=== PATIENT | female | born 1995 | race Caucasian/White ===

== ENCOUNTER 2024-10-02 10:55 | Outpatient (CLI) | payer BC, SELFPAY ==
[2024-10-02] VITALS (18 sets, daily range): BP systolic 112–125; BP diastolic 65–78; PULSE 77–94; O2SAT 96–98
[2024-10-02 12:31] LABS: Hematocrit* 32.0 % (33.0-51.0); Hemoglobin* 10.8 gm/dL (12.0-16.0); Immature Granulocytes Abs Auto 0.01 K/uL (0.00-0.30); Immature Granulocytes Pct Auto 0.1 %; Mean Corpuscular HGB Conc 34 gm/dL (32-36); Mean Corpuscular Hemoglobin 30 pg (26-34); Mean Corpuscular Volume 90 fL (80-100); RDW Coefficient of Variation % 12.6 % (11.5-15.5); Red Blood Count* 3.55 m/uL (4.00-5.20); White Blood Count* 8.64 K/uL (4.50-11.00)
[2024-10-02 12:32] LABS: Lymphocytes Absolute Auto 1.50 K/uL (0.90-2.90); Slide Review Reflex No
[2024-10-02 12:49] LABS: Alanine Aminotransferase* 29 U/L (4-35); Aspartate Amino Transferase* 35 U/L (12-35); Blood Urea Nitrogen* 4 mg/dL (5-24)
[2024-10-02 13:01] LABS: Protein Creatinine Ratio Urine 0.32 (0-0.19)
--- NOTE | 2024-10-02 14:21 | PC.OBNST ---
NST Note NST Note Start: 10/02/24 11:04 Freq: ONCE Status: Active Protocol: Document 10/02/24 14:17 JRS (Rec: 10/02/24 14:21 JRS No Response) NST Note 1 Para (# of births) 0 EDC 01/10/25 Gestational Age In 25 Weeks & 5 Days Weeks & Days Patient Presented Other with Complaint(s) of Other Complaints Here for BP monitoring and labs. Sent home with a 24 hour urine Reactive Yes Appropriate for Yes Gestational Age RONNIE Loredo RN Date 10/02/24 Reactive Yes Appropriate for Yes Gestational Age RONNIE Castillo RN Date 10/02/24 OB NST charge Yes Complete NST Note Yes via Write Note The provider's electronic signature indicates the NST is reactive/appropriate for gestational age. *Note to provider: If an addendum is required, open the patient's chart and click on the note under the Nurse/Allied Health tab.
[2024-10-03 18:36] LABS: Protein Creatinine Ratio Urine 0.25 (0-0.19)
[2024-10-03 18:40] LABS: Total Volume 24 Hour Urine 1700 ml; Urine Creatinine mg/24 Hour 945 mg/Day
== END 2024-10-02 14:10 | disposition home or self-care (01) ==
LOC: OB OUT 10:55 → OB 10:56
PROVIDERS: PCP Student in an Organized Health Care Education/Training Program; Visit Provider Family Medicine
DX: O26.892 Other specified pregnancy related conditions, second trimester (principal); R03.0 Elevated blood-pressure reading, without diagnosis of hypertension; Z3A.25 25 weeks gestation of pregnancy
CPT/HCPCS: 36415; 59025; 82570; 84156; 84450; 84460; 84520; 85025; G0463

== ENCOUNTER 2025-01-10 08:04 | Inpatient (IN) | payer BC, MEDICAID, SELFPAY ==
[2025-01-10] VITALS (87 sets, daily range): BP systolic 112–181; BP diastolic 60–113; PULSE 79–109; RESP 16–22; TEMP 36.6–37; O2SAT 95–100; BMI 37.4
[2025-01-10 07:12] LABS: Amnisure Rom* Negative
[2025-01-10 07:22] LABS: Hematocrit* 40.3 % (33.0-51.0); Hemoglobin* 13.3 gm/dL (12.0-16.0); Mean Corpuscular HGB Conc 33 gm/dL (32-36); Mean Corpuscular Hemoglobin 30 pg (26-34); Mean Corpuscular Volume 90 fL (80-100); Red Blood Count* 4.47 m/uL (4.00-5.20); White Blood Count* 5.81 K/uL (4.50-11.00)
[2025-01-10 07:38] LABS: Slide Review Reflex No
[2025-01-10 07:41] LABS: Blood Urea Nitrogen* 7 mg/dL (5-24); Creatinine* 0.5 mg/dL (0.5-1.5); Estimated Glomerular Filt Rate 130 ml/min
[2025-01-10 07:41] LABS: Protein Creatinine Ratio Urine 0.54 (0-0.19)
[2025-01-10 07:42] LABS: Alanine Aminotransferase* 32 U/L (4-35); Aspartate Amino Transferase* 58 U/L (12-35)
--- NOTE | 2025-01-10 08:38 | PM.OBHPLI ---
OB - H&P: HPI Labor/Induction History of Present Illness Time Seen by Provider: 08:38 Date Seen: 01/10/25 Chief Complaint: The patient is a 29 year old 1 para 0 at 40+0 weeks gestation by LMP, who presents with elevated blood pressures at home. Chief complaint: Maternity : 1 Para: 0 Indications for induction: pre-eclampsia Narrative: Amberly Heller is a 29 year old female at 40 +0 weeks by LMP consistent with 8 week ultrasound who presents with elevated blood pressures at home. Reports that yesterday she was not feeling well. Checked her blood pressures in the evening was elevated greater than 140/90. She rechecked and came down to 130/90. Woke up with a headache this morning and checked her blood pressure again, again elevated greater than 140/90. Upon arrival at the Center, her headache had resolved. initial BP 143/68. Some contractions on the monitor, but she is not feeling them. does report that she had some scant vaginal bleeding yesterday and possibly loss of her mucus plug. Again this a.m., scant bleeding. AmniSure was negative on admission. Preeclampsia labs show protein creatinine ratio of 0.54, AST 58, otherwise within normal limits. Normal movement. Her has been complicated by GDM A1. Very well controlled. She uses a [employer] CGM. EFW 29th percentile at 36 weeks. Maternal obesity with pregabalin BMI of 32. She has been on a daily baby aspirin. Low risk NIPT and normal level 2 ultrasound. History of Present Dating criteria: based on LMP care: good care Ultrasounds: normal 1st trimester US and normal mid trimester US complications: preeclampsia and gestational diabetes (diet controlled) Labs Blood type: A (+) positive Rubella: immune RPR/VDLR: nonreactive GBS status: negative HBsAG: negative Narrative: 3 hour GTT: 76, 218, 202, 151 Hep C neg GC/clam neg HIV neg Review of Systems Status of ROS: Reports: 10 or more systems reviewed and unremarkable except as noted in History and below Meds Home Medications and Allergies Home Medications ?Medication ?Instructions ?Recorded ?Confirmed ?Type aspirin 81 mg tablet,delayed 81 mg PO DAILY 10/02/24 01/10/25 History release mv-mn 115-folic 180 mcg-om3 35 1 tab PO DAILY 10/02/24 01/10/25 History mg-dha 25 mg-epa 5 mg-fish chew tablet (Centrum ) Allergies Allergy/AdvReac Type Severity Reaction Status Date / Time amoxicillin (From Augmentin) Allergy Intermediate Verified 01/10/25 06:42 clavulanic acid (From Allergy Intermediate Verified 01/10/25 06:42 Augmentin) strawberry Allergy Rash Verified 01/10/25 06:42 OB - H&P: Exam Physical Exam: Vital signs: Temp Pulse Resp BP Pulse Ox 98.2 F 94 16 138/87 96 01/10/25 08:26 01/10/25 08:34 01/10/25 08:26 01/10/25 08:34 01/10/25 08:34 Narrative: General appearance: Well-appearing adult female. Alert, oriented and appropriate. Sitting up in hospital bed. HEENT: EOMI, no conjunctival injection or discharge. MMM. Neck: Supple. CV: RRR, no rubs, murmurs or extra heart sounds. Pulm: CTAB, no wheezes, rales or rhonchi. Abdomen: Gravid. No RUQ tenderness MSK: Moving all extremities. Ext: Warm and well-perfused. Trace edema. Skin: No rashes appreciated over exposed skin. Neuro: Patellar reflexes could not be elicited bilaterally. No ankle clonus. Otherwise grossly normal strength and sensation. No focal deficits. Psych: Normal affect. Detailed Labor and Delivery Exam: Patient Gravid: yes Dilation (cm): 1 Contraction frequency (min): 4 Tachysystole: No Fetus (Single): Amniotic Membrane Status: intact Heart Rate Baseline: 135 Monitor Accelerations: Present Monitor Decelerations: None Retirement Variability: Moderate (6-25) OB - Results Labs Labs: Short CBC 01/10/25 Range/Units 07:06 WBC 5.81 (4.50-11.00) K/uL Hgb 13.3 (12.0-16.0) gm/dL Hct 40.3 (33.0-51.0) % Plt Count 210 (140-440) K/uL BMP 01/10/25 07:06 BUN 7 Creatinine 0.5 Liver Function 01/10/25 Range/Units 07:06 AST 58 H (12-35) U/L ALT 32 (4-35) U/L OB - Problem Based A/P Additional Plan (1) 40 weeks gestation of : Status: Acute (2) Preeclampsia: Problem details: Multiple BPs >140/90 4 hours apart (home BPs on evening [employer]), Pr/Cr 0.54, AST 56. No severe features. Status: Acute (3) Gestational diabetes mellitus: Problem details: GDM A1, well-controlled with diet alone Status: Acute Plan - IOL for pre-eclampsia at term. Plan vaginal cytotec for cervical ripening per protocol - Monitor blood pressures and treat severe range pressures as indicated - Plan repeat pre-eclampsia labs in 12 hours or sooner if severe range pressures or new symptoms - GBS negative - FHT category I - Diabetic diet. Blood sugar monitoring per protocol. Plan post- GTT - Epidural upon request
--- NOTE | 2025-01-10 17:52 | P.OBPN_ITS ---
Subjective Time Seen by Provider: 17:52 Date Seen: 01/10/25 Narrative: Patient is now s/p vaginal cytotec x 3 doses. Contractions have become more regular. Currently feeling like strong menstrual cramps, but more intense over the past hour. Denies VELA or visual changes. Blood pressures have 130-140s/80s. None severe range. Objective Vital Signs: Last Vital Signs Temp 98.1 F 01/10/25 17:33 Pulse 86 01/10/25 17:48 Resp 16 01/10/25 17:33 BP 142/90 H 01/10/25 17:48 Pulse Ox 97 01/10/25 17:33 Pelvic Exam Dilation (cm): 3 Effacement (%): 60 Station: -1 Comments: Bulging bag with contractions. Head well-applied. Contractions Contraction Frequency: 1-3 Assessment Assessment: induction ongoing Station: -1 Status: Category l Heart Rate Baseline: 130 Long-Term Variability: Moderate (6-25) Monitor Accelerations: Present Monitor Decelerations: None Plan Plan: - AROM for clear fluid - Monitor for 1 hour following AROM. Pending intensity and frequency of contractions, consider IV pitocin for ongoing induction - Epidural upon request - GBS negative - FHT category I - Anticipate vaginal delivery
[2025-01-10] MEDS: LACTATED RINGERS 1000 ML 1,000 ML 1500 ML IV (18:04)
[2025-01-10] MEDS: LIDOCAINE 2% (PF) 5 ML VIAL EPIDURAL (18:36)
[2025-01-10] MEDS: ROPIVACAINE 0.2% 100 ml 100 ML 10 MG EPIDURAL (19:03)
--- NOTE | 2025-01-10 19:11 | P.ANBPRC_ITS ---
PFSH PFSH Social History What is your current living situation?: I presently have a place to live Problems where you live: no known problems In the past 12 months, utilities in danger of being shut off: no In past 12 months, lack of transportation kept you from medical appts, meetings, work, or getting things needed for daily living: no In the past 12 mos, have been you worried that your food would run out before you had money to buy more?: never true In the past 12 mos, the food you bought just didn't last and you didn't have money to buy more?: never true Smoking Status: Never smoker How often does anyone, including family, friends and others, physically hurt you : never How often does anyone, including family, friends and others, insult or talk down to you: never How often does anyone, including family, friends and others, threaten you with harm: never How often does anyone, including family, friends and others, scream or curse at you: never Meds Home Medications and Allergies Home Medications ?Medication ?Instructions ?Recorded ?Confirmed ?Type aspirin 81 mg tablet,delayed 81 mg PO DAILY 10/02/24 1 03/12/24 History release mv-mn 115-folic 180 mcg-om3 35 1 tab PO DAILY 10/02/24 01/10/25 History mg-dha 25 mg-epa 5 mg-fish chew tablet (Centrum ) Allergies Allergy/AdvReac Type Severity Reaction Status Date / Time amoxicillin (From Augmentin) Allergy Intermediate Verified 01/10/25 06:42 clavulanic acid (From Allergy Intermediate Verified 01/10/25 06:42 Augmentin) strawberry Allergy Rash Verified 01/10/25 06:42 Results Labs Labs: Laboratory Results - last 24 hr 01/10/25 01/10/25 01/10/25 06:42 07:01 07:06 WBC 5.81 RBC 4.47 Hgb 13.3 Hct 40.3 MCV 90 MCH 30 MCHC 33 Plt Count 210 BUN 7 Creatinine 0.5 Estimated GFR 130 AST 58 H ALT 32 Urine Creatinine 54.2 Protein/Creatinin Ratio 0.54 H Urine Total Protein 29 Membrane Rupture Negative Blood Type Antibody Screen 01/10/25 10:03 WBC RBC Hgb Hct MCV MCH MCHC Plt Count BUN Creatinine Estimated GFR AST ALT Urine Creatinine Protein/Creatinin Ratio Urine Total Protein Membrane Rupture Blood Type A Positive Antibody Screen NEGATIVE Vital Signs Vital Signs: Last Vital Signs Temp 98.6 F 01/10/25 18:22 Pulse 107 H 01/10/25 19:05 Resp 16 01/10/25 17:33 BP 149/91 H 01/10/25 19:05 Pulse Ox 97 01/10/25 18:50 Weight: 89.811 kg Height: 154.94 cm Anesthesia Procedures Epidural Insertion Patient Location: OB Start Time: 18:30 Stop Time: 19:12 Start Date: 01/10/25 Stop Date: 01/10/25 Reason for Block: procedure for pain Patient Position: sitting Performed By: Renée Obrien Preanesthetic Checklist: IV checked, risks and benefits discussed, monitors and equipment checked, pre-op evaluation, timeout performed and anesthesia consent Prep: chlorhexidine gluconate Monitoring: blood pressure monitoring, continuous pulse oximetry and heart rate Approach: midline Vertebral Space: lumbar (1-5) Epidural Technique: DAHIANA saline Needle Type: Tuohy needle Injection Technique: continuous catheter Needle gauge: 17 Needle Length (cm): 10 cm Needle Insertion Depth (cm): 6 Catheter Gauge: 19 Catheter Type: multi-orifice Catheter at skin depth (cm): 12 Test Dose Result: negative and lidocaine 1.5% with epinephrine 1 to 200,000
[2025-01-10] MEDS: LACTATED RINGERS 1000 ML 1,000 ML 75 ML IV (19:37)
[2025-01-10 19:45] LABS: Hematocrit* 39.4 % (33.0-51.0); Hemoglobin* 12.9 gm/dL (12.0-16.0); Immature Granulocytes Abs Auto 0.06 K/uL (0.00-0.30); Immature Granulocytes Pct Auto 0.8 %; Mean Corpuscular HGB Conc 33 gm/dL (32-36); Mean Corpuscular Hemoglobin 30 pg (26-34); Mean Corpuscular Volume 90 fL (80-100); RDW Coefficient of Variation % 13.5 % (11.5-15.5); Red Blood Count* 4.38 m/uL (4.00-5.20); White Blood Count* 7.34 K/uL (4.50-11.00)
[2025-01-10 19:48] LABS: Lymphocytes Absolute Auto 0.80 K/uL (0.90-2.90); Slide Review Reflex No
[2025-01-10 20:02] LABS: Alanine Aminotransferase* 33 U/L (4-35); Aspartate Amino Transferase* 33 U/L (12-35); Blood Urea Nitrogen* 8 mg/dL (5-24); Creatinine* 0.5 mg/dL (0.5-1.5); Est. Creatinine Clearance* 125.28; Estimated Glomerular Filt Rate 130 ml/min
--- NOTE | 2025-01-10 22:41 | P.OBPN_ITS ---
Subjective Time Seen by Provider: 22:41 Date Seen: 01/10/25 Narrative: I was asked to evaluate the patient for vaginal bleeding. Currently 9/thin/0 by RN check. She has epidural and is comfortable. Feeling some pressure. Objective Vital Signs: Last Vital Signs Temp 98.1 F 01/10/25 21:25 Pulse 96 01/10/25 22:34 Resp 16 01/10/25 21:25 BP 151/86 H 01/10/25 22:34 Pulse Ox 97 01/10/25 21:55 Pelvic Exam Dilation (cm): 9 Effacement (%): 80 Station: 0 Comments: Heavy bloody show, no source of active bleeding visualized. Contractions Contraction Frequency: 1-3 Assessment Assessment: active labor Station: 0 Amniotic Membrane Status: AROM Status: Category ll Heart Rate Baseline: 130 Residential Variability: Moderate (6-25) Monitor Accelerations: Present Monitor Decelerations: Variable Tracing Comments: A few early, variable, and late decelerations. Plan Plan: - Heavy bloody show, but no oozing or trickling. Continue to monitor. Do not suspect abruption. - FHT category II, but good variability, and good progress toward delivery - Coping well with epidural - Recheck in 1 hour or sooner pending strip and symptoms - Anticipate vaginal delivery
[2025-01-11] VITALS (32 sets, daily range): BP systolic 107–178; BP diastolic 57–97; PULSE 72–112; RESP 16–20; TEMP 36.5–37.4; O2SAT 95–100
--- NOTE | 2025-01-11 01:07 | PM.OBPNL ---
Subjective Time Seen by Provider: 01:07 Date Seen: 01/11/25 Narrative: Change in baseline increased rapidly from 140 to 180 between 23:35 and 23:40. Variability remained moderate with accelerations present. IVF rate was increased and maternal temp found to be normal. Remained tachycardic with baseline 180. Noted to have minimal variability 00:32. Bolus started and patient repositioned. Onset of recurrent late decelerations 00:41. Maternal tachycardia in the low 100s to 1teens. Temps have been normal, but subjectively warm on cervical exams. BPs are normal. She had repeat pre-eclampsia labs 1929 that were all WNL. Cervix has remined 9 cm since 22:30. Objective Vital Signs: Last Vital Signs Temp 98.2 F 01/10/25 23:55 Pulse 112 H 01/11/25 00:57 Resp 20 01/10/25 23:55 BP 131/73 01/11/25 00:57 Pulse Ox 97 01/10/25 21:55 Pelvic Exam Dilation (cm): 9 Effacement (%): 80 Station: +1 Assessment Station: +1 Amniotic Membrane Status: AROM Status: Category ll Heart Rate Baseline: 175 [facility] Variability: Minimal (3-5) Monitor Accelerations: Absent Monitor Decelerations: Late Plan Plan: - Tracing discussed with MICROBIOLOGY LAB ANALYST salon receptionist, Dr. Hilario. Feel the patient is meeting criteria for urgent section. Dr. Hilario is in agreement, will come in to evaluate. Team will be called and OR prepared.
[2025-01-11] MEDS: AZITHROMYCIN 500 MG in 0.9 % SODIUM CHLORIDE 250 ml 250 ML 255 MG IVPB (01:11)
[2025-01-11] MEDS: LACTATED RINGERS 1000 ML 1,000 ML 500 ML IV (01:17)
--- NOTE | 2025-01-11 01:21 | P.OBCN_ITS ---
OB - CN: HPI Date of Consult Date Seen: 01/11/25 Patient: Mayda Patient Consult date: 01/11/25 Requesting Physician: Kathi Moreno MD Primary Care Provider: MARY KAY SCHMIDT DO Consult Narrative Narrative: The patient is a 29 year old G 1 P 0 at 40 weeks gestation that was admitted to the Center on 01/10/25 for induction of labor in the setting of preeclampsia without severe features. is otherwise complicated by gestational diabetes. She is an established patient of [facility]. I was contacted by the unit at [phone] with request to review patient's tracing. I called the unit where they report patient is 9cm dilated, with periods of early and intermittent late decelerations for the last few hours. More recently, baby has demonstrated minimal variability with a rise in the baseline to 17 to 180 beats per minute. My remote access dysfunctional, but regardless given this description I recommend proceeding to in notify of the OR team. I presented to the bedside. Patient is resting comfortable with epidural in place. We discussed concern with heart rate changes, and recommendation to proceed with primary . She expressed understanding and is agreeable. We discussed the risks/benefits and alternatives to in detail. Risks including bleeding, infection, damage to surrounding structures reviewed. With regard to bleeding, I counseled her that she is at increased risk of PPH in the setting of an intrapartum . Patient is a candidate for uterotonics but I will aim to avoid Methergine in the setting of her preeclampsia. She would be agreeable to blood transfusion if necessary. Discussed potential surgical interventions that could be required for severe bleeding. Discussed risk of infection, where would recommend Ancef and azithromycin as her surgical prophylaxis. Patient does note an allergy to Augmentin described as hives as a child. Explained Ancef is still the preferred antibiotic in the setting, where we will proceed with a test dose in OR. Reviewed risk of damage to surrounding structures including uterus, tubes, ovaries, bowel, bladder, blood vessels, baby. Patient has no history of other abdominal/pelvic surgeries. Finally, discussed medical risks of surgery/anesthesia such as VTE, heart attack and stroke. After comprehensive discussion, written consent was obtained. Plan to proceed with primary . Ancef and azithromycin as antibiotics, test dose as described above. Blood type A positive, active type and screen on file. Of note, shortly after our discussion patient had a non sustained severe range blood pressure. Dr. Moreno notes she has had several other severe range blood pressures, by greater than 4 hours. As such, she meets criteria for preeclampsia with severe features. Recommend we initiate magnesium sulfate 4g loading dose followed by 2g/hr infusion. Repeat preE labs pending. No headache, vision changes or RUQ pain. Patient was updated on plan and is in agreement. History of Present complications: preeclampsia and gestational diabetes (diet controlled) History History 1 Elective abortions Para 0 Spontaneous abortions Hx # Term Pregnancies Ectopic pregnancies Hx # Pregnancies Multiple births Number of Living Children 0 Labs Blood type: A (+) positive Rubella: immune RPR/VDLR: nonreactive GBS status: negative HBsAG: negative OB Labs: Lab Assessment Start: 01/10/25 07:56 Freq: ONCE Status: Complete Protocol: PC.OBGBS Activity Type Activity Date Activity User E-sign Co-sign Detail Recorded Client Recorded Date Recorded By Document 01/10/25 09:16 WMK No Response 01/10/25 09:17 WMK 01/10/25 09:16 Lab Assessment GBS Status negative GBS Additional Criteria None No Treatment Needed OK Are Labs Available Yes Maternal Blood Type A Maternal RH Factor Positive Evaluate Maternal Rubella Immune Status Immune Hepatitis B Surface Antigen Negative Maternal HIV Status Negative Maternal Syphillis (RPR) Status Negative PFSH PFSH Social History What is your current living situation?: I presently have a place to live Problems where you live: no known problems In the past 12 months, utilities in danger of being shut off: no In past 12 months, lack of transportation kept you from medical appts, meetings, work, or getting things needed for daily living: no In the past 12 mos, have been you worried that your food would run out before you had money to buy more?: never true In the past 12 mos, the food you bought just didn't last and you didn't have money to buy more?: never true Smoking Status: Never smoker How often does anyone, including family, friends and others, physically hurt you : never How often does anyone, including family, friends and others, insult or talk down to you: never How often does anyone, including family, friends and others, threaten you with harm: never How often does anyone, including family, friends and others, scream or curse at you: never Meds Home Medications and Allergies Home Medications ?Medication ?Instructions ?Recorded ?Confirmed ?Type aspirin 81 mg tablet,delayed 81 mg PO DAILY 10/02/24 1 03/12/24 History release mv-mn 115-folic 180 mcg-om3 35 1 tab PO DAILY 10/02/24 01/10/25 History mg-dha 25 mg-epa 5 mg-fish chew tablet (Centrum ) Allergies Allergy/AdvReac Type Severity Reaction Status Date / Time amoxicillin (From Augmentin) Allergy Intermediate Verified 01/10/25 06:42 clavulanic acid (From Allergy Intermediate Verified 01/10/25 06:42 Augmentin) strawberry Allergy Rash Verified 01/10/25 06:42 OB - H&P: Exam Physical Exam: Vital signs: Temp Pulse Resp BP Pulse Ox 98.2 F 105 H 20 144/95 H 97 01/10/25 23:55 01/11/25 01:12 01/10/25 23:55 01/11/25 01:12 01/10/25 21:55 OB - Results Labs Labs: Short CBC 01/10/25 01/10/25 Range/Units 07:06 19:36 WBC 5.81 7.34 (4.50-11.00) K/uL Hgb 13.3 12.9 (12.0-16.0) gm/dL Hct 40.3 39.4 (33.0-51.0) % Plt Count 210 199 (140-440) K/uL BMP 01/10/25 01/10/25 07:06 19:36 BUN 7 8 Creatinine 0.5 0.5 Liver Function 01/10/25 01/10/25 Range/Units 07:06 19:36 AST 58 H 33 (12-35) U/L ALT 32 33 (4-35) U/L OB - CN: A/P Assessment and Plan (1) 40 weeks gestation of : Status: Acute (2) Preeclampsia: Problem details: Multiple BPs >140/90 4 hours apart (home BPs on evening [employer]), Pr/Cr 0.54, AST 56. No severe features. Status: Acute (3) Gestational diabetes mellitus: Problem details: GDM A1, well-controlled with diet alone Status: Acute
[2025-01-11 01:55] LABS: Hematocrit* 39.3 % (33.0-51.0); Hemoglobin* 12.9 gm/dL (12.0-16.0); Mean Corpuscular HGB Conc 33 gm/dL (32-36); Mean Corpuscular Hemoglobin 30 pg (26-34); Mean Corpuscular Volume 90 fL (80-100); Red Blood Count* 4.37 m/uL (4.00-5.20); White Blood Count* 9.54 K/uL (4.50-11.00)
[2025-01-11 01:56] LABS: Slide Review Reflex No
--- NOTE | 2025-01-11 02:01 | PM.OBPRCCS ---
Procedure Post-op diagnosis: same Procedure Done: Global Will [facility] bill your pro fee for this procedure?: Yes Blood Loss Measurement Type: QBL (706) IV fluids (mL): 900 Urine Output (mL): 600 Urine Output Comment: strawberry colored both pre and post procedure Surgeon: Kulwinder Hilario MD Anesthesia Type: Epidural Findings: Liveborn female Meconium stained fluid Posterior uterine surface had diffuse erythematous tissue, very friable with small bleeding - suspect endometriosis Otherwise unremarkable uterus, bilateral fallopian tubes and ovaries Procedure Name: Primary delivery Procedure Description: Patient was taken to the operating room with IV running. She received ancef and azithromcyin in preoperative prophylaxis. Epidural anesthesia was previously administered. Fowler catheter was previously inserted. She was prepped and draped in the usual sterile fashion. Anesthesia was tested and found to be adequate. A low-transverse skin incision was made with a scalpel and carried through to the underlying layer of fascia with the scalpel. The subcutaneous fat was dissected off the underlying fascia with Bovie. The fascia was nicked in the midline with a scalpel, and this incision was extended laterally with scissors. The rectus muscles were in the midline. Peritoneum was identified and entered bluntly. Bovie was used to widen this opening laterally. Julio O retractor was inserted and tightened down, providing excellent visualization of the lower uterine segment. The bladder reflection was advanced along the lower uterine segment, where a bladder flap was developed with sharp and blunt dissection to well below planned site of hysterotomy. Low-transverse uterine incision was made with a scalpel. Incision was widened bluntly. Thick meconium noted. The infant's head was grasped through the hysterotomy and delivered with the help of fundal pressure. The remainder of the body delivered without incident. Cord was clamped and cut after 30 seconds. Infant was handed off to attending nurses and Pediatrics provider. details: - Liveborn female fetus at 0223 - weight 3088g - APGARs were 8 and 9 at 1 and 5 minutes respectively - Cord gas: Arterial pH 7.29, pCO2 54, HC03 26, base excess -2.5 The placenta was delivered with gentle traction on the cord. The uterus was cleaned of all clots and debris with the dry lap pad. No extension of hysterotomy was noted. Atony was noted, IV Pitocin was started. IV TXA and IM Hemabate were requested and administered. The hysterotomy was reapproximated with 0 Vicryl in a running, locked fashion. Uterine tone was noted to improve significantly with medications and 1st layer of closure. Second layer of the same suture was used in imbricating fashion to obtain hemostasis. Additional figure of eight sutures were applied at the right hysterotomy corner and mid region to reinforce hemostasis. Excellent hemostasis was noted. The adnexa were examined and noted to be normal in appearance. The posterior uterus though was notable for friable erythematous tissue that coated half of the posterior uterine surface. Biopsy was performed and sent. This tissue was bleeding spontaneously in several areas, addressed with electrocautery. A running/locking 2-0 vicryl was applied to a bleeding region at the left and right posterior uterus just medial to uteroovarian ligament. Excellent hemostasis was noted. Hysterotomy was reinspected and noted to be hemostatic. Uterus was reintroduced to peritoneal cavity. The cul-de-sac and gutters were cleansed with dampened laparotomy sponge, removing any further clots and debris. The Julio O retractor was removed. The hysterotomy was reexamined and found to be hemostatic. George was applied across hysterotomy. The rectus muscles were elevated, examined and made hemostatic with electrocautery as needed. The fascia was reapproximated with 0 Vicryl in a running fashion. A knot was noted shortly after starting fascial repair, where the first suture was secured toward the right and a second 0 Vicryl stitch was started and continued closure. Subcutaneous fat was irrigated and Bovie used on oozing vessels. The subcutaneous fat was reapproximated with 2 0 Vicryl suture. The skin was closed with a subcuticular stitch of 3-0 Monocryl. Surgical glue was applied above this. Patient tolerated procedure well was taken to recovery area in stable condition. Complications: None Pathology: specimen obtained, sent to pathology Surgery Debrief Performed: Yes Condition: stable Disposition: floor
[2025-01-11] MEDS: MAGNESIUM IV 4 GM/100 ML PIGGYBACK IVPB (02:02)
[2025-01-11 02:10] LABS: Alanine Aminotransferase* 35 U/L (4-35); Aspartate Amino Transferase* 35 U/L (12-35); Blood Urea Nitrogen* 8 mg/dL (5-24); Creatinine* 0.4 mg/dL (0.5-1.5); Est. Creatinine Clearance* 156.59; Estimated Glomerular Filt Rate 137 ml/min
[2025-01-11] MEDS: CEFAZOLIN 2 GM INJ IVP (02:10)
[2025-01-11] MEDS: MAGNESIUM Infusion 40 GM/1,000 ML IV.SOLN IVPB ×2 (02:32→22:31)
--- NOTE | 2025-01-11 04:04 | P.ANES_ITS ---
Anesthesia Charges Start Date/Time Anesthesia Start Date: 01/11/25 Anesthesia Start Time: 01:56 Stop Date/Time Anesthesia Stop Date: 01/11/25 Anesthesia Stop Time: 04:00 Summary Emergency: LEARNING SUPPORT SPECIALIST Coding CPT Codes CPT Codes: ANES/ANALG CS DELIVER ADD-ON - 40633 ([id number]) P2 - PATIENT W/MILD SYST DISEASE, QZ - LEARNING SUPPORT SPECIALIST SVC W/O MANAGER STORAGE BY Additional Codes: Summary - Emergency: LEARNING SUPPORT SPECIALIST ([id number])
--- NOTE | 2025-01-11 04:04 | W.ANESCHARGE ---
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
[2025-01-11] MEDS: LOPERAMIDE HCL 2 MG CAPSULE 4 MG PO (04:21)
[2025-01-11] MEDS: LACTATED RINGERS 1000 ML 1,000 ML 75 ML IV ×2 (06:26→20:10)
[2025-01-11] MEDS: ACETAMINOPHEN 500 MG TABLET 1000 MG PO (08:02)
[2025-01-11 08:08] LABS: Hematocrit* 36.5 % (33.0-51.0); Hemoglobin* 12.0 gm/dL (12.0-16.0); Mean Corpuscular HGB Conc 33 gm/dL (32-36); Mean Corpuscular Hemoglobin 30 pg (26-34); Mean Corpuscular Volume 91 fL (80-100); Red Blood Count* 4.02 m/uL (4.00-5.20); White Blood Count* 10.62 K/uL (4.50-11.00)
[2025-01-11 08:11] LABS: Slide Review Reflex No
[2025-01-11 08:23] LABS: Alanine Aminotransferase* 28 U/L (4-35); Aspartate Amino Transferase* 31 U/L (12-35); Blood Urea Nitrogen* 6 mg/dL (5-24); Creatinine* 0.6 mg/dL (0.5-1.5); Est. Creatinine Clearance* 104.40; Estimated Glomerular Filt Rate 125 ml/min
[2025-01-11 13:54] LABS: Hematocrit* 34.7 % (33.0-51.0); Hemoglobin* 11.5 gm/dL (12.0-16.0); Mean Corpuscular HGB Conc 33 gm/dL (32-36); Mean Corpuscular Hemoglobin 30 pg (26-34); Mean Corpuscular Volume 90 fL (80-100); Red Blood Count* 3.86 m/uL (4.00-5.20); White Blood Count* 10.18 K/uL (4.50-11.00)
[2025-01-11 14:02] LABS: Slide Review Reflex No
[2025-01-11 14:17] LABS: Alanine Aminotransferase* 26 U/L (4-35); Aspartate Amino Transferase* 34 U/L (12-35); Blood Urea Nitrogen* 8 mg/dL (5-24); Creatinine* 0.6 mg/dL (0.5-1.5); Est. Creatinine Clearance* 104.40; Estimated Glomerular Filt Rate 125 ml/min
[2025-01-11 19:44] LABS: Hematocrit* 30.8 % (33.0-51.0); Hemoglobin* 10.1 gm/dL (12.0-16.0); Mean Corpuscular HGB Conc 33 gm/dL (32-36); Mean Corpuscular Hemoglobin 30 pg (26-34); Mean Corpuscular Volume 90 fL (80-100); Red Blood Count* 3.42 m/uL (4.00-5.20); White Blood Count* 9.33 K/uL (4.50-11.00)
[2025-01-11 19:47] LABS: Slide Review Reflex No
[2025-01-11 19:59] LABS: Alanine Aminotransferase* 25 U/L (4-35); Aspartate Amino Transferase* 32 U/L (12-35); Blood Urea Nitrogen* 8 mg/dL (5-24); Creatinine* 0.6 mg/dL (0.5-1.5); Est. Creatinine Clearance* 104.40; Estimated Glomerular Filt Rate 125 ml/min
[2025-01-12 02:15] LABS: Hematocrit* 28.8 % (33.0-51.0); Hemoglobin* 9.5 gm/dL (12.0-16.0); Mean Corpuscular HGB Conc 33 gm/dL (32-36); Mean Corpuscular Hemoglobin 30 pg (26-34); Mean Corpuscular Volume 91 fL (80-100); Red Blood Count* 3.17 m/uL (4.00-5.20); White Blood Count* 8.05 K/uL (4.50-11.00)
[2025-01-12 02:23] LABS: Slide Review Reflex No
[2025-01-12 02:29] VITALS: BP 121/85; PULSE 83; RESP 18; O2SAT 98
[2025-01-12 02:31] LABS: Alanine Aminotransferase* 21 U/L (4-35); Aspartate Amino Transferase* 28 U/L (12-35); Blood Urea Nitrogen* 8 mg/dL (5-24); Creatinine* 0.5 mg/dL (0.5-1.5); Est. Creatinine Clearance* 125.28; Estimated Glomerular Filt Rate 130 ml/min
[2025-01-12] MEDS: ACETAMINOPHEN 500 MG TABLET 1000 MG PO (02:40)
[2025-01-12 06:30] VITALS: BP 114/75; PULSE 78; RESP 16; TEMP 36.8; O2SAT 99
[2025-01-12] MEDS: DOCUSATE SODIUM 100 MG CAPSULE PO (09:30)
[2025-01-12 09:35] VITALS: BP 118/78; PULSE 86; RESP 18; TEMP 36.5; O2SAT 96
[2025-01-12 09:50] LABS: Glucose 2 Hour 190 mg/dl (70-155)
--- NOTE | 2025-01-12 11:52 | PM.OBPNVD1 ---
OB - PN:Subj Subjective Date Seen: 01/12/25 Patient comments OB post-: no complaints, pain well controlled, tolerating diet and flatus present [place] status: and doing well Narrative: The patient is a 29-year-old who is postoperative day #1 following a primary low transverse section for nonreassuring heart rate. Her delivery was also complicated by a diagnosis of severe preeclampsia made just prior to delivery based on blood pressure criteria. She was treated with a magnesium sulfate infusion for 24 hours, this was discontinued at 2:30 a.m. this morning. She feels well today and has no concerns. Her pain is under good control. She denies headaches, visual changes or right upper quadrant pain. She has some swelling in her lower extremities for which she is wearing compression stockings this morning. She is working on . OB - PN: Obj Exam Physical Exam: Vital signs: Temp Pulse Resp BP Pulse Ox O2 Del Method 97.7 F 86 18 118/78 96 Room Air 01/12/25 09:35 01/12/25 09:35 01/12/25 09:35 01/12/25 09:35 01/12/25 09:35 01/12/25 09:35 Constitutional: Constitutional: no acute distress Routine Neck Exam: Neck: Present normal inspection Routine Respiratory Exam: Respiratory: Present CTA bilaterally; Absent respiratory distress Routine Cardiovascular Exam: Cardiovascular: Present RRR; Absent murmur Routine Abdominal Exam: Abdominal: Present soft; Absent tenderness Fundus: Present firm Routine Extremities Exam: Extremities: Present normal inspection and pedal edema; Absent calf tenderness Routine Neurological Exam: Neurological: Present alert and oriented X3 Routine Psychiatric Exam: Psychiatric: Present normal affect Wound Management: Method: suture Examination: Present clean, dry and intact; Absent erythematous Comments: Pfannenstiel incision OB - PN: Obj Data Labs Labs: Laboratory Results - last 24 hr 01/10/25 01/11/25 01/11/25 10:03 13:38 19:37 WBC 10.18 9.33 RBC 3.86 L 3.42 L Hgb 11.5 L 10.1 L Hct 34.7 30.8 L MCV 90 90 MCH 30 30 MCHC 33 33 Plt Count 207 188 BUN 8 8 Creatinine 0.6 0.6 Estimated Creat Clear 104.40 104.40 Estimated GFR 125 125 Glucose Tolerance Magnesium 5.9 H* 5.9 H* AST 34 32 ALT 26 25 RPR Screen Non Reactive 01/12/25 01/12/25 02:05 07:09 WBC 8.05 RBC 3.17 L Hgb 9.5 L Hct 28.8 L MCV 91 MCH 30 MCHC 33 Plt Count 176 BUN 8 Creatinine 0.5 Estimated Creat Clear 125.28 Estimated GFR 130 Glucose Tolerance Magnesium 6.1 H* AST 28 ALT 21 RPR Screen OB - PN: A/P Delivery Assessment and Plan (1) Preeclampsia: Problem details: Multiple BPs >140/90 4 hours apart (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 No severe features. Status: Acute (2) Gestational diabetes mellitus: Problem details: GDM A1, well-controlled with diet alone Status: Acute (3) S/P section: Status: Acute Plan day: 1 Plan: routine care
[2025-01-12 13:15] VITALS: BP 121/84; PULSE 82; RESP 16; TEMP 36.4; O2SAT 100
[2025-01-12 17:10] VITALS: BP 129/82; PULSE 90; RESP 18; TEMP 36.6; O2SAT 98
[2025-01-12] MEDS: IBUPROFEN 600 MG TABLET PO (18:31)
[2025-01-12 20:39] VITALS: BP 120/80; PULSE 96; RESP 16; TEMP 36.7; O2SAT 97
[2025-01-12] MEDS: LANOLIN CREAM 1 APPLIC TOPICAL (20:46)
[2025-01-13] MEDS: ACETAMINOPHEN 500 MG TABLET 1000 MG PO ×2 (00:42→08:35)
[2025-01-13 00:50] VITALS: BP 125/80; PULSE 85; RESP 16; TEMP 36.6; O2SAT 96
[2025-01-13] MEDS: IBUPROFEN 600 MG TABLET PO (05:42)
[2025-01-13 05:46] VITALS: BP 117/75; PULSE 81; RESP 16; TEMP 36.6; O2SAT 96
[2025-01-13] MEDS: DOCUSATE SODIUM 100 MG CAPSULE PO (08:35)
[2025-01-13 09:32] VITALS: BP 128/86; PULSE 80; RESP 18; TEMP 36.6; O2SAT 97
--- NOTE | 2025-01-13 10:00 | P.DS_ITS ---
DS: Providers Provider Date Seen: 01/13/25 Date of admission: 01/10/25 08:04 Primary care physician: MARY KAY SCHMIDT DO Admitting Clinician: Kathi Moreno MD Attending Physician on discharge: Felipa Edmondson MD Date of Discharge: 01/13/25 DS: Diagnosis Discharge Diagnosis (1) S/P section: Status: Acute (2) Gestational diabetes mellitus: Status: Acute Problem details: GDM A1, well-controlled with diet alone. 2 hour GTT c/w prediabetes. 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 Severe features developed intrapartum. (4) Acute blood loss anemia: Status: Acute Problem details: hemoglobin 9.5 Exam Const: Vital Signs, click to edit/add: Vital Signs - 24 hr 01/12/25 13:15 01/12/25 17:10 01/12/25 20:39 Temperature 97.6 F 97.9 F 98.0 F Pulse Rate [Pulse Oximeter] 82 90 96 Respiratory Rate 16 18 16 Blood Pressure [Le ft Arm] 121/84 129/82 120/80 Pulse Oximetry 100 98 97 Oxygen Delivery Me thod Room Air Room Air Room Air 01/13/25 00:50 01/13/25 05:46 01/13/25 09:32 Temperature 97.9 F 97.9 F 97.9 F Pulse Rate [Pulse Oximeter] 85 81 80 Respiratory Rate 16 16 18 Blood Pressure [Le ft Arm] 125/80 117/75 128/86 Pulse Oximetry 96 96 97 Oxygen Delivery Me thod Room Air Room Air Room Air Documenting provider has reviewed patient's vital signs: yes Common normals: no apparent distress and oriented x3 General appearance: cooperative and comfortable Resp: Common normals: normal respiratory effort Cardio: Common normals: regular rate Rate: regular rate GI: Common normals: soft to palpation and non-tender Inspection: normal to inspection and incision Inspection of incision: healing well Palpation: soft Extremity: Common normals: normal to inspection and no pedal edema Neuro: Common normals: oriented x3 Psych: Common normals: affect normal OB - DS: Summary Hospital Course Hospital Course: The patient is a 29 year old G 1 now P 1001 that was admitted to the [facility] on 01/10/25 for induction of labor secondary to preeclampsia. She had an uncomplicated delivery for nonreassuring heart rate tracing. Shortly before delivery, she developed severe range blood pressures, and was started on magnesium sulfate infusion that was continued for 24 hours. She delivered a viable female . She is breast feeding. the patient has done well. Peripartum Data delivery method: Primary C/S; Labored Procedures: Procedures Operation Date: 01/11/25 01:45 Actual Procedure Side Surgeon p Primary Section Peggy Hilario MD complications: none [place] Infant Gender: Female Status at Discharge Functional status at discharge: independent ambulation Overall status at discharge: patient is back to baseline Time Spent with Patient Time attestation: Total time spent providing and/or coordinating discharge services: Discharge Plan Discharge Disposition: Home, Self-Care Date of Admission: 01/10/25 08:04 Attending Provider on Discharge: Felipa Edmondson Primary Care Provider: MARY KAY SCHMIDT Condition: Stable Anticipated Discharge Date/Time: 01/13/25 10:10 Discharge Medications: New docusate sodium 100 mg Capsule 100 mg PO DAILY Qty: 30 0RF ibuprofen 600 mg Tablet 600 mg PO Q6H PRN (Reason: Pain) Qty: 30 0RF oxycodone 5 mg Tablet 5 - 10 mg PO Q6H PRN (Reason: Pain) Qty: 10 0RF Continued Centrum 180 mcg-35 mg- 25 mg-5 mg tablet,chewable 1 tab PO DAILY Discontinued aspirin 81 mg tablet,delayed release (DR/EC) 81 mg PO DAILY Discharge Orders: Discharge Order (Routine); Ordered 01/13/25 Ordered By: Felipa Edmondson Patient Education: Bupivacaine Liposome (By injection), OB Over the Counter Medication Information, OB /Breast Feeding Additional Instructions: [facility] check in two weeks. Follow-up with primary provider in six weeks. Activity Level: Activity as Tolerated Discharge Diet: Regular Follow Up Appointments: MARY KAY SCHMIDT DO [Primary Care Provider, Family Practice] Forms: [employer] Info Instructions DS:Data Additional Comments Additional comments: 2 hour glucose tolerance test: Fasting 74, 2 hour 190 (H). Results consistent with prediabetes. hemoglobin 9.5.
== END 2025-01-13 12:09 | disposition home or self-care (01) | DRG 540 ==
LOC: OB OUT 08:05 → OB 08:05
PROVIDERS: Obstetrics & Gynecology; Student in an Organized Health Care Education/Training Program; Admitting Provider Family Medicine; PCP Student in an Organized Health Care Education/Training Program; Visit Provider Obstetrics & Gynecology
PROC: 10D00Z1 Extraction of Products of Conception, Low, Open Approach (ICD-10-PCS; CPT 59514; principal; 2025-01-11 01:45)
DX: O14.14 Severe pre-eclampsia complicating childbirth (principal); O24.420 Gestational diabetes mellitus in childbirth, diet controlled; O76 Abnormality in fetal heart rate and rhythm complicating labor and delivery; O77.0 Labor and delivery complicated by meconium in amniotic fluid; N85.8 Other specified noninflammatory disorders of uterus; O99.214 Obesity complicating childbirth; E66.9 Obesity, unspecified; O90.81 Anemia of the puerperium; D62 Acute posthemorrhagic anemia; Z3A.40 40 weeks gestation of pregnancy; Z37.0 Single live birth
CPT/HCPCS: 01967; 01968; 36415; 59200; 82565; 82570; 82947; 82950; 82962; 83735; 84112; 84156; 84450; 84460; 84520; 85025; 85027; 86592; 86850; 86900; 86901; 99140; A9270; J0456; J0665; J0666; J0690; J1885; J2371; J2405; J2590; J2765; J2795; J3010; J3475; J7050; J7120